=== PATIENT | male | born 1990 | race Caucasian/White ===

== ENCOUNTER 2016-11-24 12:42 | Emergency (ER) | payer BC, OTHER ==
--- NOTE | ~2016-11-24 | CR142 ---
[facility] A Service of [facility] & [facility] RADIOLOGY TEXT RESULTS PATIENT: BJ BOWMAN LOCATION: [facility] : [birth year] UNIT #: [id number] AGE: [address]: Emerald Pineda APRN SEX: M ORDER DR: [id number] [facility] [address] [place], [place] [address] [id number] E MR#: [id number] Acc #: [id number] NAME: BJ BOWMAN. : 1990 SEX: M STUDY DATE/TIME: 11/24/2016 13:00 UNIT: [facility] ROOM: STUDY DESCRIPTION: CR Hand Min 3 Views Rt Attending Physician: Emerald Pineda A.P.R.N. Referring Physician: Demetrius Cortes M.D. Ordering Physician: Benny Hopson M.D. Primary Care Physician: Amaris Doyle A.P.R.N. MEDICAL IMAGING REPORT This report is preliminary unless electronic signature is present EXAM Right hand. INDICATIONS Right hand pain since last night after hitting hand with hammer. Pain in 5th digit. FINDINGS Three views of the right hand were obtained. There is a fracture at the base of the fifth metacarpal bone. This is an oblique, slightly displaced fracture. The other bones are normal. IMPRESSION There appears to be an oblique fracture at the base of the fifth metacarpal bone, otherwise, the study is normal. Dictated by... Glenn Davidson M.D. THIS IS AN ELECTRONICALLY VERIFIED REPORT Glenn Davidson M.D. at 11/25/2016 7:03 AM MATT/matt TD: 11/24/2016 21:49 JOB #: [id number] MEDICAL IMAGING REPORT Page 1 of 1 COPY
[~2016-11-24 12:42] MED LIST: A/T/S 2% GEL30 GM TOP; ALBUTEROL PO; AMOXICILLIN500 M1 PO; AMOXIL500 M1 PO; CLARITIN10 M3; CLOBETASOL 0.0560 GM; CLOBETASOL 0.0560 GM TOP; COLACE PO; DIAZEPAM PO; DICYCLOMINE HCL20 MG PO; DOXYCYCLINE150 MG PO; ERYTHROMYCIN O3.5 GM OD; FLEXERIL PO; HYDROCODON-ACE1 EAC4 PO; HYDROCODONE-APA1 T41 PO; IBUPROFEN PO; IBUPROFEN800 MG PO; KEFLEX PO; KEPPRA500 M2 PO; LORATADINE PO; LORTAB 5/500 TA1 TA1 PO; LYRICA75 MG PO; MEDROL PO; MOBIC PO; NAPROXEN PO; NASONEX17 GM; NO MEDICATIONS; NORFLEX100 M1; OXYCODONE15 MG MT; PEPCID40 MG; PERCOCET5/325 PO; PHENERGAN PO; PHENERGAN25 MG PO; PLAQUENIL200 MG PO; PREDNISONE PO; PREDNISONE1 MG PO; PREDNISONE5 M1 DOB; PRILOSEC PO; SKELAXIN PO; SUBOXONE 12 MG1 EACH; TYLENOL #3 PO; VICODIN PO; WALGREENS PHARMACY; Z-PAK; ZOFRAN ODT4 MG PO; ZOFRAN PO; ZYRTEC PO
== END 2016-11-24 14:00 | disposition home or self-care (01) ==
LOC: CED 12:42 → CFTX 12:42
DX: S62.316A Displaced fracture of base of fifth metacarpal bone, right hand, initial encounter for closed fracture (principal); F17.210 Nicotine dependence, cigarettes, uncomplicated; W22.03XA Walked into furniture, initial encounter; Y92.009 Unspecified place in unspecified non-institutional (private) residence as the place of occurrence of the external cause; K21.9 Gastro-esophageal reflux disease without esophagitis
CPT/HCPCS: 29125; 73130; 99283

== ENCOUNTER 2016-12-12 23:36 | Emergency (ER) | payer BC, OTHER ==
[2016-12-12] MEDS ORDERED: PEPCID AC20 M2 (23:42)
[2016-12-12] MEDS ORDERED: B/P MED (23:43)
== END 2016-12-13 00:57 | disposition home or self-care (01) ==
LOC: SED 23:36
DX: L03.115 Cellulitis of right lower limb (principal); I10 Essential (primary) hypertension; F17.210 Nicotine dependence, cigarettes, uncomplicated
CPT/HCPCS: 99283

== ENCOUNTER 2017-02-08 02:43 | Emergency (ER) | payer BC, OTHER ==
[~2017-02-08] VITALS: Ht 175.3 cm; Wt 73.0 kg
[~2017-02-08 02:43] MED LIST changes: +B/P MED; +PEPCID AC20 M2
[2017-02-08 05:36] LABS: URINE SOURCE CLEAN CATCH
[2017-02-08 05:42] LABS: URINE APPEARANCE CLEAR; URINE BILIRUBIN NEG (NEG); URINE BLOOD NEG (NEG); URINE COLOR YELLOW; URINE GLUCOSE NEG (NEG); URINE KETONE NEG (NEG); URINE LEUKOCYTE ESTERASE NEG (NEG); URINE NITRATE NEG (NEG); URINE PH 6.5 (5-8); URINE PROTEIN NEG (NEG); URINE SPECIFIC GRAVITY 1.023 (1.003-1.035)
[2017-02-08 05:45] LABS: CULTURE INDICATED? NO
[2017-02-08 06:13] LABS: BUN/CREATININE RATIO 15.38; CALCIUM SERUM 9.7 mg/dL (8.4-10.2); CREATININE SERUM 1.3 mg/dL (0.6-1.4); GLOM FILT RATE Estimated 74.8 mL/min (>60); POTASSIUM 4.3 mmol/L (3.5-5.1)
== END 2017-02-08 07:00 | disposition home or self-care (01) ==
LOC: CED 02:43
PROVIDERS: Nurse Practitioner Family
DX: S39.012A Strain of muscle, fascia and tendon of lower back, initial encounter (principal); I10 Essential (primary) hypertension; K21.9 Gastro-esophageal reflux disease without esophagitis; F17.210 Nicotine dependence, cigarettes, uncomplicated; X50.0XXA Overexertion from strenuous movement or load, initial encounter
CPT/HCPCS: 36415; 80048; 81003; 96361; 96374; 99283; J1885

== ENCOUNTER → 2017-03-11 | Outpatient (CLI) | payer BC, OTHER ==
--- NOTE | ~2017-03-11 | US6 ---
[facility] A Service of [facility] & [facility] RADIOLOGY TEXT RESULTS PATIENT: BJ BOWMAN LOCATION: [facility] : 88 UNIT #: [id number] AGE: [address]: Amaris Doyle APRN SEX: M ORDER DR: [id number] [facility] [address] [place], [place] [address] [id number] O MR#: [id number] Acc #: [id number] NAME: BJ BOWMAN : 1990 SEX: M STUDY DATE/TIME: 03/11/2017 7:46 UNIT: [facility] ROOM: STUDY DESCRIPTION: US Abdominal Limited Attending Physician: Amaris Doyle A.P.R.N. Referring Physician: Amaris Doyle A.P.R.N. Ordering Physician: Amaris Doyle A.P.R.N. Primary Care Physician: Amaris Doyle A.P.R.N. MEDICAL IMAGING REPORT This report is preliminary unless electronic signature is present EXAM Right upper quadrant ultrasound 03/11/2017 INDICATIONS Right upper quadrant pain for a year but constant for the past 3 weeks. No radiation. Hypertension. No prior abdominal surgery. TECHNIQUE Sonographic imaging right quadrant was performed. COMPARISON STUDIES There are no comparisons. FINDINGS The pancreas is unremarkable to the extent visualized. Extrahepatic common bile duct measures 3-4 mm. No intrahepatic ductal dilatation. The liver measures 15.7 cm long axis. No focal liver mass or ascites. Increased echogenicity of the liver parenchyma compared to the right kidney suggests mild fatty infiltration. Right kidney is non-obstructed measuring 9.1 cm long axis. The gallbladder demonstrates a small amount of sludge within the lumen but no shadowing stones. There is no wall thickening or pericholecystic fluid. Gallbladder wall measures about 3 mm. The technologist did report a positive sonographic Flynn's sign. IMPRESSION 1. Small amount of gallbladder sludge. Gallbladder otherwise unremarkable. No intra- or extrahepatic biliary ductal dilatation. A positive sonographic Flynn's sign is noncontributory given the otherwise unremarkable appearance of the gallbladder. 2. Probable mild fatty infiltration of the liver. [facility] A Service of [facility] & [facility] RADIOLOGY TEXT RESULTS PATIENT: BJ BOWMAN [id number] : [birth year] UNIT #: [id number] AGE: [address]: Amaris Doyle APRN SEX: M ORDER DR: Dictated by... Vitor Kimbrough M.D. THIS IS AN ELECTRONICALLY VERIFIED REPORT Vitor Kimbrough M.D. at 03/13/2017 3:24 PM KENYATTA/sally TD: 03/11/2017 23:35 JOB #: [id number] MEDICAL IMAGING REPORT Page 1 of 1 COPY
== END | disposition home or self-care (01) ==
LOC: CGUS 07:13
DX: R10.11 Right upper quadrant pain (principal); K83.8 Other specified diseases of biliary tract
CPT/HCPCS: 76705